=== PATIENT | male | born 1945 | race Caucasian/White ===

== ENCOUNTER 2017-04-19 09:32 | Emergency (ER) | payer OTHER ==
[~2017-04-19] VITALS: Ht 188 cm; Wt 100.2 kg
[2017-04-19] MEDS ORDERED: PREDNISONE50 MG PO (11:04)
[2017-04-19 11:27] VITALS: BP 1125/61
== END 2017-04-19 11:28 | disposition home or self-care (01) ==
LOC: EME 09:32
DX: M54.5 Low back pain (principal); M79.604 Pain in right leg; R39.198 Other difficulties with micturition; Z87.891 Personal history of nicotine dependence
CPT/HCPCS: 72100

== ENCOUNTER 2017-05-11 02:48 | Emergency (ER) | payer OTHER ==
[~2017-05-11] VITALS: Ht 188 cm; Wt 113.6 kg
[~2017-05-11 02:48] MED LIST: PREDNISONE50 MG PO
[2017-05-11 03:57] LABS: HEMATOCRIT 45.3 % (38.0-50.0); HEMOGLOBIN 16.1 G/DL (12.5-16.6); MCH 29.9 PG (29.0-34.0); MCHC 35.5 G/DL (30.0-36.0); PLATELET COUNT 217 K/uL (156-360); RBC DIS.WIDTH-CV 13.2 % (11.8-14.6); RBC DIS.WIDTH-SD 40.7 % (39-53); RED BLOOD COUNT 5.39 M/uL (4.00-5.50); WHITE BLOOD COUNT 8.7 K/uL (4.1-10.2)
[2017-05-11 04:08] LABS: ALBUMIN 4.8 g/dL (3.2-4.8); CHLORIDE 106 mEq/L (99-109); POTASSIUM 4.4 mEq/L (3.7-5.4); SODIUM 140 mEq/L (136-147)
[2017-05-11 04:10] LABS: GLUCOSE 191 mg/dL (70-99)
[2017-05-11 04:11] LABS: TOTAL PROTEIN 7.6 g/dL (6.4-8.3)
[2017-05-11 04:12] LABS: TOTAL BILIRUBIN 1.1 mg/dL (0.0-1.0)
[2017-05-11 04:14] LABS: ALKALINE PHOSPHATASE 72 IU/L (3-129); CREATININE 1.1 mg/dL (0.6-1.3); GFR ESTIMATE (CALCULATED) > 59 mL/min/ (58.99-99999)
[2017-05-11 04:15] LABS: UREA NITROGEN (BUN) 21 mg/dL (9-23)
[2017-05-11 04:16] LABS: AST (GOT) 25 IU/L (2-34)
[2017-05-11 04:17] LABS: ALT (GPT) 30 IU/L (3-49)
[2017-05-11 06:01] LABS: LIPASE 12 U/L (1.0-51.0)
[2017-05-11 06:36] LABS: APPEARANCE CLEAR ((CLEAR)); BILIRUBIN NEGATIVE; BLOOD NEGATIVE; COLOR YELLOW ((YELLOW)); GLUCOSE (STRIP) 50; KETONES 20; LEUKOCYTES NEGATIVE; NITRITE NEGATIVE; PROTEIN (STRIP) 30; SPECIFIC GRAVITY 1.035 (1.000-1.030); UCUL ADDED? NO
[2017-05-11] MEDS ORDERED: ZOFRAN4 MG PO (06:47)
[2017-05-11] MEDS ORDERED: BENTYL20 MG PO (06:47)
[2017-05-11 08:22] VITALS: BP 160/76
== END 2017-05-11 08:40 | disposition home or self-care (01) ==
LOC: EME 02:48
DX: R10.32 Left lower quadrant pain (principal); R11.2 Nausea with vomiting, unspecified; N20.1 Calculus of ureter; I10 Essential (primary) hypertension; Z87.891 Personal history of nicotine dependence; K21.9 Gastro-esophageal reflux disease without esophagitis; R06.02 Shortness of breath
CPT/HCPCS: 71046; 74177; 80053; 81003; 83690; 85027; 87502; 99281; 99285; J2405; J7030; S0028